=== PATIENT | female | born 1960 | race Caucasian/White ===

== ENCOUNTER 2017-07-04 11:00 | Day surgery (SDC) | payer OTHER ==
[2017-07-04] MEDS: NS 1,000 ML IV (11:15)
[2017-07-04 12:05] LABS: BEDSIDE GLUCOSE 127 MG/DL (70-105)
[2017-07-04] MEDS ORDERED: PROPOFOL 200 MG/20 ML VIAL As Ordered ×2 (12:35→12:36)
[2017-07-04] MEDS ORDERED: LIDOCAINE 2% INJ 100 MG/5 ML SDV (FOR ANES.) As Ordered (12:36)
== END 2017-07-04 13:14 | disposition home or self-care (01) ==
LOC: M OPP 11:00
DX: Z12.11 Encounter for screening for malignant neoplasm of colon (principal); Z86.010 Personal history of colon polyps; K51.90 Ulcerative colitis, unspecified, without complications; K63.89 Other specified diseases of intestine; Z98.0 Intestinal bypass and anastomosis status; K64.0 First degree hemorrhoids; I10 Essential (primary) hypertension; E78.00 Pure hypercholesterolemia, unspecified; E11.9 Type 2 diabetes mellitus without complications; K21.9 Gastro-esophageal reflux disease without esophagitis; R12 Heartburn; E53.8 Deficiency of other specified B group vitamins; M19.90 Unspecified osteoarthritis, unspecified site; M81.0 Age-related osteoporosis without current pathological fracture; E66.9 Obesity, unspecified; Z87.19 Personal history of other diseases of the digestive system; Z88.0 Allergy status to penicillin; Z79.899 Other long term (current) drug therapy; Z79.4 Long term (current) use of insulin
CPT/HCPCS: 45380

== ENCOUNTER → 2018-05-17 | Outpatient (REF) | payer OTHER ==
[~2018-05-17] MED LIST: ALEN70TA57; ATOR40TA75; BYDU2INJ7; CALTCHW5 PO; GLIM4TAB; GLUC1CAP10 PO; LANTINJ4; LISI10TA4; MAGN400T5 PO; MESA1.2T; METF500T4; MULT1TAB10 PO; OMEP20CA3 PO
--- NOTE | 2018-05-18 04:24 | REP ---
Clinical: Pain with recent trauma. Technique: AP, lateral, bilateral oblique views of the right ankle. Findings: Moderate swelling. No obvious acute fracture or dislocation. Ankle mortise intact. No subcutaneous emphysema or radiodense foreign body. Impression: Moderate swelling. No acute fracture. Electronically Signed by Misbah Patterson MD 05/18/2018 04:16 A
== END ==
LOC: M ADAMS 09:56
PROVIDERS: ATTEND Physician Assistant
DX: M25.571 Pain in right ankle and joints of right foot (principal)

== ENCOUNTER → 2019-11-28 | Outpatient (REF) | payer OTHER ==
[~2019-11-28] MED LIST changes: -ALEN70TA57; +ALEN70TA74; -GLIM4TAB; +GLIM4TAB5; +METF-838; -METF500T4; +OMEP1CAP73 PO; -OMEP20CA3 PO
== END ==
LOC: M LAB REF 16:34
PROVIDERS: ATTEND Internal Medicine
DX: I50.21 Acute systolic (congestive) heart failure (principal)

== ENCOUNTER → 2020-01-02 | Outpatient (CLI) | payer OTHER ==
--- NOTE | 2020-01-13 18:17 | SLEEPHOME ---
DATE: 01/02/2020 ORDERED BY: Dr. Carroll Diagnostic home sleep testing was performed due to concern for the obstructive sleep apnea syndrome. For testing, a nocturnal T3 respiratory monitoring device was used. Continuous record was made of pulse, oxygen saturation, air flow, chest and abdominal strain, and body position. Nine hours and 59 minutes of data were reviewed. There were 6 hours and 47 minutes marked as time in bed. During the interval marked time in bed, there were 112 respiratory events identified of 10 seconds in duration or greater for an respiratory disturbance index of 16.5. The events were primarily obstructive. Baseline pulse rate 65 beats per minute. Pulse rate ranged 50 to 86. Baseline saturation was just 90%. Saturations fell to 82%. Testing was performed in both the supine and non-supine positions. IMPRESSION: Abnormal home sleep testing with repetitive respiratory events and oxygen desaturations to 82 % with a respiratory event index of 16.5 is consistent with the obstructive sleep apnea syndrome. RECOMMENDATION: The patient should be encouraged to undergo a formal sleep evaluation. AVIS
== END ==
LOC: M SLEEP HO 09:59
PROVIDERS: ATTEND Internal Medicine Cardiovascular Disease
DX: G47.9 Sleep disorder, unspecified (principal)

== ENCOUNTER → 2020-08-06 | Outpatient (CLI) | payer OTHER ==
[~2020-08-06] MED LIST changes: -ALEN70TA74; +ALEN70TA82; +LISI10TA22; -LISI10TA4
--- NOTE | 2020-08-06 11:05 | DEXAMM ---
INDICATION: OSTEOPOROSIS. COMPARISON: Comparison studies June 27, 2018 and September 19, 2009.. TECHNIQUE: Bone density was measured using dual-energy x-ray absorptionmetry (DEXA). FINDINGS: AP SPINE L1-L4 BMD 0.903 g/cm2 Young Adult T-Score -2.4 Age Matched Z-Score -1.0. LT FEMUR, TOTAL BMD 0.812 g/cm2 Young Adult T-Score -1.5 Age Matched Z-Score -0.5. LT NECK BMD 0.725 g/cm2 Young Adult T-Score -2.2 Age Matched Z-Score -0.9. RT FEMUR, TOTAL BMD 0.813 g/cm2 Young Adult T-Score -1.5 Age Matched Z-Score -0.5. RT NECK BMD 0.728 g/cm2 Young Adult T-Score -2.2 Age Matched Z-Score -0.9. IMPRESSION: There is low bone density of the spine. There is low bone density of the left hip. There is low bone density of the right hip. The density of the spine has decreased 2.8% since the initial exam on September 19, 2009. The density of the spine decreased 11.0% since most recent exam on June 27, 2018. The density of the left hip has decreased 3.7% since initial exam on September 19, 2009. The density of the left hip has decreased 5.8% since most recent exam on June 27, 2018. The density of the right hip has decreased 1.5% since the initial exam on September 19, 2009. The density of the right hip has decreased 7.4% since the most recent exam on June 27, 2018. FOLLOW-UP: Recommendation for the next bone density exam: 2 years. <Electronically signed by Sae Ventura > 08/06/20 1105
== END ==
LOC: M WHC 10:10
PROVIDERS: ATTEND Internal Medicine
DX: M81.0 Age-related osteoporosis without current pathological fracture (principal)

== ENCOUNTER → 2020-09-17 | Outpatient (CLI) | payer OTHER ==
[~2020-09-17] MED LIST changes: +ACET650T61 PO; +LISI-898 PO
== END ==
LOC: M LABSMTC 11:07
PROVIDERS: ATTEND Anesthesiology
DX: Z01.818 Encounter for other preprocedural examination (principal); Z11.52 Encounter for screening for COVID-19

== ENCOUNTER 2020-09-22 11:51 | Day surgery (SDC) | payer OTHER ==
[~2020-09-22] VITALS: Ht 154.9 cm; Wt 73.9 kg
[~2020-09-22 11:51] MED LIST changes: +NS 1,000 ML IV ONE
[2020-09-22] MEDS ORDERED: LIDOCAINE 2% 100MG/5ML SDV (FOR ANES.) As Ordered ONE (14:47)
[2020-09-22] MEDS ORDERED: propofoL 200 MG/20 ML VIAL As Ordered ONE (14:47)
--- NOTE | 2020-09-22 15:06 | ROOR ---
Patient Name: Louise Muñoz Procedure Date: 09/22/2020 2:35 PM Date of : 1960 Age: 60 Room: [facility] Gender: Female Note Status: Finalized Procedure: Total Colonoscopy to cecum + Bx. Indications: Follow-up of chronic ulcerative pancolitis, Disease activity assessment of chronic ulcerative pancolitis Providers: Jalen Ardon MD Referring MD: Mariajose ADAME MD Requesting Provider: Medicines: Monitored Anesthesia Care Complications: No immediate complications. Procedure: Pre-Anesthesia Assessment: - The heart rate, respiratory rate, oxygen saturations, blood pressure, adequacy of pulmonary ventilation, and response to care were monitored throughout the procedure. The Colonoscope was introduced through the anus and advanced to the cecum, identified by appendiceal orifice and ileocecal valve. The colonoscopy was performed without difficulty. The patient tolerated the procedure well. The quality of the bowel preparation was excellent. Findings: The perianal and digital rectal examinations were normal. Non-bleeding internal hemorrhoids were found during retroflexion. The hemorrhoids were small and Grade I (internal hemorrhoids that do not prolapse). There was evidence of a prior end-to-end colo-colonic anastomosis in the transverse colon. This was patent and was characterized by ulceration. The anastomosis was traversed. Background biopsies were taken for histology with a cold forceps from the ascending colon, transverse colon, descending colon and rectosigmoid colon. These biopsy specimens were sent to Pathology. The exam was otherwise without abnormality on direct and retroflexion views. Impression: - Non-bleeding internal hemorrhoids. - Patent end-to-end colo-colonic anastomosis, characterized by ulceration. - The examination was otherwise normal on direct and retroflexion views. - Background biopsies were taken from the ascending colon, transverse colon, descending colon and rectosigmoid colon. - The exam was otherwise normal to the cecum. Recommendation: - Patient has a contact number available for emergencies. The signs and symptoms of potential delayed complications were discussed with the patient. Return to normal activities tomorrow. Written discharge instructions were provided to the patient. - High fiber diet. - Discharge patient to home. - Continue present medications. - Await pathology results. - Repeat colonoscopy for surveillance based on pathology results. - Telephone GI office for pathology results in 1 week. - The findings and recommendations were discussed with the patient's family. Procedure Code(s): --- Professional --- 40141, Colonoscopy, flexible; with biopsy, single or multiple Diagnosis Code(s): --- Professional --- K64.0, First degree hemorrhoids Z98.0, Intestinal bypass and anastomosis status K51.00, Ulcerative (chronic) pancolitis without complications CPT copyright 2019 [employer]. All rights reserved. The codes documented in this report are preliminary and upon sap bw bi developer review may be revised to meet current compliance requirements. Jalen Ardon MD Jalen Ardon MD 09/22/2020 3:05:15 PM Electronically signed by Jalen Ardon MD Number of Addenda: 0 Note Initiated On: 09/22/2020 2:35 PM Estimated Blood Loss: Estimated blood loss: none.
[2020-09-22 15:31] VITALS: BP 146/74
== END 2020-09-22 15:37 | disposition home or self-care (01) ==
LOC: M OPP 11:51
PROVIDERS: ATTEND Internal Medicine Gastroenterology
DX: K51.00 Ulcerative (chronic) pancolitis without complications (principal); K64.0 First degree hemorrhoids; Z98.0 Intestinal bypass and anastomosis status; Z79.4 Long term (current) use of insulin; Z79.899 Other long term (current) drug therapy; Z88.8 Allergy status to other drugs, medicaments and biological substances

== ENCOUNTER → 2021-09-22 | Outpatient (CLI) | payer OTHER ==
[~2021-09-22] MED LIST changes: -LISI-898 PO; +LISI5TAB11 PO; -NS 1,000 ML IV ONE
== END ==
LOC: M WHC 11:20
PROVIDERS: ATTEND Internal Medicine
DX: Z12.31 Encounter for screening mammogram for malignant neoplasm of breast (principal)

== ENCOUNTER → 2022-01-27 | Outpatient (REF) | payer OTHER | LOC: M LAB REF 16:47 | PROVIDERS: ATTEND Nurse Practitioner Adult Health | DX: R30.0 Dysuria (principal) ==

== ENCOUNTER → 2022-04-21 | Outpatient (CLI) | payer OTHER | LOC: M PLAIMG 14:59 | PROVIDERS: ATTEND Internal Medicine | DX: Z11.52 Encounter for screening for COVID-19 (principal) ==

== ENCOUNTER → 2022-07-12 | Outpatient (REF) | payer OTHER | LOC: M LAB REF 16:07 | PROVIDERS: ATTEND Internal Medicine | DX: R30.0 Dysuria (principal) ==

== ENCOUNTER → 2022-09-23 | Outpatient (CLI) | payer OTHER | LOC: M WHC 12:32 | PROVIDERS: ATTEND Internal Medicine | DX: M89.9 Disorder of bone, unspecified (principal); Z12.31 Encounter for screening mammogram for malignant neoplasm of breast ==

== ENCOUNTER → 2022-12-02 | Outpatient (REF) | payer OTHER ==
[2022-12-02 15:11] LABS: HEPATITIS C VIRUS ABY INDEX 0.17 INDEX (<0.8)
[2022-12-02 15:12] LABS: HEPATITIS B CORE ANTIBODY IGM NEGATIVE (NEGATIVE)
== END ==
LOC: M LAB REF 12:48
PROVIDERS: ATTEND Internal Medicine
DX: R74.8 Abnormal levels of other serum enzymes (principal)

== ENCOUNTER → 2022-12-07 | Outpatient (REF) | payer OTHER | LOC: M LAB REF 16:41 | PROVIDERS: ATTEND Internal Medicine | DX: R74.01 Elevation of levels of liver transaminase levels (principal) ==

== ENCOUNTER → 2022-12-14 | Outpatient (CLI) | payer OTHER | LOC: M PLAIMG 07:07 | PROVIDERS: ATTEND Internal Medicine | DX: R16.0 Hepatomegaly, not elsewhere classified (principal) ==

== ENCOUNTER → 2022-12-23 | Outpatient (REF) | payer OTHER ==
[2022-12-25 17:10] LABS: ALPHA 1 ANTITRYPSIN 153 mg/dL (101-187); ANTI-MITOCHONDRIAL ANTIBODY <20.0 Units (0.0-20.0); CERULOPLASMIN 31.7 mg/dL (19.0-39.0)
== END ==
LOC: M LAB REF 16:35
PROVIDERS: ATTEND Internal Medicine
DX: R74.01 Elevation of levels of liver transaminase levels (principal)

== ENCOUNTER → 2022-12-28 | Outpatient (REF) | payer OTHER | LOC: M LAB REF 12:29 | PROVIDERS: ATTEND Internal Medicine | DX: R74.01 Elevation of levels of liver transaminase levels (principal) ==

== ENCOUNTER → 2023-02-11 | Outpatient (REF) | payer MEDICARE, OTHER ==
[~2023-02-11] MED LIST changes: +INSU100I34 SQ; +META28.32 PO; +METO1TAB32 PO
== END ==
LOC: M LAB REF 17:38
PROVIDERS: ATTEND Internal Medicine
DX: R74.01 Elevation of levels of liver transaminase levels (principal)

== ENCOUNTER 2023-02-12 12:21 | Emergency (ER) | payer MEDICARE, OTHER ==
[~2023-02-12] VITALS: Ht 154.9 cm; Wt 76.4 kg
[~2023-02-12 12:21] MED LIST changes: -INSU100I34 SQ; -META28.32 PO; -METO1TAB32 PO
[2023-02-12] MEDS ORDERED: INSU100I34 SQ (12:48)
[2023-02-12] MEDS ORDERED: METO1TAB32 PO (12:48)
[2023-02-12] MEDS ORDERED: META28.32 PO (12:48)
[2023-02-12] MEDS ORDERED: BOOSTRIX VACCINE (TETANUS/DIPHTH/ACEL. PERTUSSIS) 0.5ML SYR IM ONE (16:45)
[2023-02-12 17:17] VITALS: BP 154/67; TEMP 98.3; O2SAT 99
[2023-02-12] MEDS ORDERED: NEOSPORIN OINT 0.9 GM PKT TOP ONE (17:35)
[2023-02-12] MEDS ORDERED: IBUPROFEN 800 MG TAB PO ONE (17:40)
== END 2023-02-12 18:04 | disposition home or self-care (01) ==
LOC: EDBD 12:21 → M ED 12:21
DX: S81.812A Laceration without foreign body, left lower leg, initial encounter (principal); V43.52XA Car driver injured in collision with other type car in traffic accident, initial encounter; E11.9 Type 2 diabetes mellitus without complications; I10 Essential (primary) hypertension; K51.90 Ulcerative colitis, unspecified, without complications; G47.33 Obstructive sleep apnea (adult) (pediatric); Z79.4 Long term (current) use of insulin; Z79.899 Other long term (current) drug therapy; Z88.0 Allergy status to penicillin

== ENCOUNTER → 2023-06-06 | Outpatient (REF) | payer MEDICARE, OTHER ==
[~2023-06-06] MED LIST changes: +INSU100I59 SQ; +META28.32 PO; +METO1TAB32 PO
== END ==
LOC: M LAB REF 13:41
PROVIDERS: ATTEND Internal Medicine
DX: R74.8 Abnormal levels of other serum enzymes (principal)

== ENCOUNTER → 2023-07-07 | Outpatient (REF) | payer MEDICARE, OTHER | LOC: M LAB REF 12:44 | PROVIDERS: ATTEND Internal Medicine | DX: R74.01 Elevation of levels of liver transaminase levels (principal) ==

== ENCOUNTER → 2023-08-30 | Outpatient (REF) | payer MEDICARE, OTHER | LOC: M LAB REF 16:53 | PROVIDERS: ATTEND Internal Medicine | DX: R74.01 Elevation of levels of liver transaminase levels (principal) ==

== ENCOUNTER → 2023-09-28 | Outpatient (CLI) | payer MEDICARE, OTHER | LOC: M WHC 12:58 | PROVIDERS: ATTEND Internal Medicine | DX: Z12.31 Encounter for screening mammogram for malignant neoplasm of breast (principal) ==

== ENCOUNTER → 2023-10-19 | Outpatient (REF) | payer MEDICARE, OTHER | LOC: M LAB REF 16:24 | PROVIDERS: ATTEND Internal Medicine | DX: R74.01 Elevation of levels of liver transaminase levels (principal); R74.8 Abnormal levels of other serum enzymes ==

== ENCOUNTER → 2024-01-16 | Outpatient (REF) | payer MEDICARE, OTHER ==
[~2024-01-16] MED LIST changes: +ATOR40TA75 PO; +JARD1TAB PO; +LIAL1.2T PO; +MAGN400T33 PO; +METF500T13 PO; +TUMS500C PO
== END ==
LOC: M LAB REF 13:33
PROVIDERS: ATTEND Internal Medicine
DX: R74.01 Elevation of levels of liver transaminase levels (principal); R74.8 Abnormal levels of other serum enzymes

== ENCOUNTER 2024-01-18 10:51 | Day surgery (SDC) | payer MEDICARE, OTHER ==
[~2024-01-18] VITALS: Ht 154.9 cm; Wt 72.0 kg
[~2024-01-18 10:51] MED LIST changes: +LIDOCAINE 2% 100MG/5ML SDV (FOR ANES.) As Ordered ONE; +NS 250 ML IV ONE; +propofoL 200 MG/20 ML VIAL As Ordered ONE
[2024-01-18 13:21] VITALS: TEMP 96.6
[2024-01-18 13:41] VITALS: BP 106/59; O2SAT 99
== END 2024-01-18 13:45 | disposition home or self-care (01) ==
LOC: M OPP 10:51
PROVIDERS: ATTEND Internal Medicine Gastroenterology
DX: K51.00 Ulcerative (chronic) pancolitis without complications (principal); K64.0 First degree hemorrhoids; Z98.0 Intestinal bypass and anastomosis status; K44.9 Diaphragmatic hernia without obstruction or gangrene; K31.89 Other diseases of stomach and duodenum; R12 Heartburn; K29.50 Unspecified chronic gastritis without bleeding; I10 Essential (primary) hypertension; E11.9 Type 2 diabetes mellitus without complications; G47.9 Sleep disorder, unspecified; Z88.0 Allergy status to penicillin; Z79.84 Long term (current) use of oral hypoglycemic drugs; Z79.899 Other long term (current) drug therapy

== ENCOUNTER → 2024-04-23 | Outpatient (REF) | payer MEDICARE, OTHER ==
[~2024-04-23] MED LIST changes: -LIDOCAINE 2% 100MG/5ML SDV (FOR ANES.) As Ordered ONE; -NS 250 ML IV ONE; -propofoL 200 MG/20 ML VIAL As Ordered ONE
== END ==
LOC: M LAB REF 12:25
PROVIDERS: ATTEND Internal Medicine
DX: R74.01 Elevation of levels of liver transaminase levels (principal)